=== PATIENT | female | born 1950 | race Caucasian/White ===

== ENCOUNTER 2018-09-03 16:18 | Inpatient (IN) ==
[2018-09-03] MEDS ORDERED: Sod Chloride 0.9% Inj 1,000 ML IV.SIG ONE (16:36)
[2018-09-03 17:09] LABS: Baso # (Auto) 0.1 th/mm3 (0.0-0.2); Baso % (Auto) 0.6 % (0.0-2.0); Eos # (Auto) 0.1 th/mm3 (0.0-0.4); Eos % (Auto) 1.2 % (0.0-4.0); Hematocrit 45.1 % (35.0-46.0); Hemoglobin 14.8 gm/dL (11.6-15.3); Lymph # (Auto) 2.5 th/mm3 (1.0-4.8); Lymph % (Auto) 29.8 % (9.0-44.0); Mean Corpuscular HGB Conc 32.9 % (32.0-36.0); Mean Corpuscular Hemoglobin 28.2 pg (27.0-34.0); Mean Corpuscular Volume 85.6 fL (80.0-100.0); Mean Platelet Volume 7.8 fL (7.0-11.0); Mono # (Auto) 0.5 th/mm3 (0.0-0.9); Mono % (Auto) 6.4 % (0.0-8.0); Neut # (Auto) 5.2 th/mm3 (1.8-7.7); Platelet Count 379 th/mm3 (150-450); Red Blood Count 5.27 mil/mm3 (4.00-5.30); Red Cell Distribution Width 15.1 % (11.6-17.2); White Blood Count 8.3 th/mm3 (4.0-11.0)
[2018-09-03 17:29] LABS: Bilirubin,Urine Negative (Negative); Clarity,Urine Clear (Clear); Color,Urine Yellow (Yellw/Straw); Glucose,Urine (UA) 500 or Greater mg/dL (Negative); Leukocyte Esterase,Urine Negative (Negative); Nitrite,Urine Negative (Negative); Specific Gravity,Urine 1.022 (1.002-1.035)
--- NOTE | 2018-09-03 17:40 | CT ---
EXAM DATE: 09/03/2018 5:01 PM EDT AGE/SEX: 67 years / Female INDICATIONS: Trauma, multiple falls. CLINICAL DATA: This is the patient's initial encounter. Patient reports that signs and symptoms have been present for 1 day and indicates a pain score of 5/10. MEDICAL/SURGICAL HISTORY: Diabetes. Hypertension. None. RADIATION DOSE: 48.86 CTDI (mGy) COMPARISON: [facility], MR BRAIN W AND W/O CONTRAST, 11/08/2017. . TECHNIQUE: CT of the head without contrast. Using automated exposure control and adjustment of the mA and/or kV according to patient size, radiation dose was kept as low as reasonably achievable to ob tain optimal diagnostic quality images. DICOM format image data is available electronically for revi ew and comparison. FINDINGS: Cerebrum: Moderate diffuse cerebral atrophy. The ventricles are in the upper limits of normal for de gree of atrophy but stable from prior exam. Mild periventricular white matter hypodensities. No evide nce of midline shift, mass lesion, hemorrhage or acute infarction. No extraaxial fluid collections a re seen. Posterior Fossa: The cerebellum and brainstem are intact. The 4th ventricle is midline. The cerebe llopontine angle is unremarkable. Extracranial: The visualized portion of the orbits is intact. Mucoperiosteal thickening involving th e right maxillary sinus. Skull: The calvaria is intact. No evidence of skull fracture. CONCLUSION: 1. Moderate diffuse cerebral atrophy in the upper limits of normal for age. 2. Mild periventricular ischemic white matter demyelination. 3. No acute intracranial abnormality. 4. Right maxillary sinus mucosal disease. . Electronically signed by: Gera Marcelino MD 09/03/2018 5:39 PM EDT
--- NOTE | 2018-09-03 17:45 | CT ---
EXAM DATE: 09/03/2018 5:01 PM EDT AGE/SEX: 67 years / Female INDICATIONS: Trauma, multiple falls. CLINICAL DATA: This is the patient's initial encounter. Patient reports that signs and symptoms have been present for 1 day and indicates a pain score of 5/10. MEDICAL/SURGICAL HISTORY: Diabetes. Hypertension. . RADIATION DOSE: 42.99 CTDI (mGy) COMPARISON: No prior exams available for comparison. TECHNIQUE: Contiguous axial images were obtained using helical multirow detector technique. The vol umetric data was post-processed with multiplanar reconstruction in oblique axial, sagittal, and coron al planes. Using automated exposure control and adjustment of the mA and/or kV according to patient s ize, radiation dose was kept as low as reasonably achievable to obtain optimal diagnostic quality rodrigue ges. DICOM format image data is available electronically for review and comparison. FINDINGS: OSSEOUS STRUCTURES: Vertebral body heights are maintained. Osseous structures are intact without evid ence for acute bony fracture. Dens is intact. ALIGNMENT: Sagittal alignment is maintained. There is a normal C1-2 relationship. Facets are normal ly aligned. SOFT TISSUES: There is no significant prevertebral soft tissue hematoma. No significant cervical caity nopathy or gross mass. The thyroid appears unremarkable. Visualized lung apices are clear without pn eumothorax. ADDITIONAL FINDINGS: Advanced multilevel spondylosis of the lower cervical spine most prominently at C4-5 and C5-6 with moderate severe disc space disease, end plate sclerosis and posterior disc osteoph ytes. Bony central canal is patent. Mild right and moderate left bony neural foraminal stenosis at C 4-5 and C5-6. CONCLUSION: 1. No acute fracture or subluxation. 2. Advanced multilevel degenerative spondylosis of cervical spine. Electronically signed by: Gera Marcelino MD 09/03/2018 5:44 PM EDT
[2018-09-03 18:11] LABS: Anion Gap 9 meq/L (5-15); Blood Urea Nitrogen 35 mg/dL (7-18); Calcium 9.6 mg/dL (8.5-10.1); Carbon Dioxide 31.3 meq/L (21.0-32.0); Chloride 90 meq/L (98-107); Glomerular Filtration Rate 27 mL/min (>89); Potassium 4.2 meq/L (3.5-5.1); Sodium 130 meq/L (136-145)
[2018-09-03 18:14] LABS: Glucose,Random 620 mg/dL (74-106)
[2018-09-03] MEDS ORDERED: ALPRAZolam 0.25 MG Tablet PO PRN (18:48)
[2018-09-03] MEDS ORDERED: Dextrose 50% in Water 50 ML Vial IV.PUSH PRN (18:49)
[2018-09-03] MEDS ORDERED: Acetaminophen 325 MG Tablet PO PRN (18:52)
[2018-09-03] MEDS ORDERED: Sodium Chlor 0.9% Inj 500 ML IV.SIG SCH (19:00)
--- NOTE | 2018-09-03 19:04 | ED ---
HPI General Chief Complaint: Neuro Symptoms/Deficit Stated Complaint: fall-R side of head Time Seen by Provider: 09/03/18 16:35 Source: patient and family Mode of arrival: ambulatory Limitations: no limitations History of Present Illness HPI Narrative: Patient is a 67-year-old female, past medical history significant for hypertension, diabetes, hypothyroidism, previous renal artery stent placement, who presents with complaint of a fall. She states that she got up and fell hitting the back of her head. She did not lose consciousness. No nausea nor vomiting since then. She denies any neck pain. Per her she has had frequent falls over the last several years secondary to dizziness. He states that she has had an extensive workup which included CTs and an MRI for this dizziness. He states that he was called by her physician recently and told that secondary to the changes on her imaging she needed to be on bedrest for the next 6 weeks. He does not no further information. Records have been requested. complaint: Reports fall Onset (ago): hour(s) Related Data Home Medications Medication Instructions Recorded Confirmed alprazolam [Xanax] 0.25 mg PO BID PRN 09/03/18 09/03/18 aspirin [Aspirin Childrens] 81 mg PO DAILY 09/03/18 09/03/18 insulin regular human [Novolin R 1 sliding scale dose SUBCUT BID 09/03/18 Regular U-100 Insuln] levothyroxine [Synthroid] 50 mcg PO DAILY 09/03/18 09/03/18 lisinopril 40 mg PO DAILY 09/03/18 09/03/18 Allergies Allergy/AdvReac Type Severity Reaction Status Date / Time Penicillins Allergy Mild Hives Verified 09/03/18 16:26 Review of Systems ROS: all other systems reviewed are negative FOR[facility] Medical History Medical History Hypothyroid (Acute) Diabetes (Acute) Hypertension (Acute) Slurred speech (Acute) Surgical History Surgical History H/O arthroscopy of knee (Acute) History of renal stent (Acute) Social History Social History Substance History: No History of Abuse Second Hand Smoke Exposure: No Smoking Status: Never smoker How Often Do You Have a Drink Containing Alcohol: Monthly or less Recent Travel in [facility] within the Last 8 Weeks: No Recent Out of Country Travel within the Last 8 Weeks: No Immunization History Tetanus Immunization: <5 Years Exam Narrative Exam Narrative: GENERAL: Well-appearing female in no acute distress SKIN: Focused skin assessment warm/dry. HEAD: Atraumatic. Normocephalic. EYES: Pupils equal and round. No scleral icterus. No injection or drainage. ENT: No nasal bleeding or discharge. Mucous membranes pink and moist. NECK: Trachea midline. No JVD. CARDIOVASCULAR: Regular rate and rhythm. No murmur appreciated. RESPIRATORY: No accessory muscle use. Clear to auscultation. Breath sounds equal bilaterally. GASTROINTESTINAL: Abdomen soft, non-tender, nondistended. Hepatic and splenic margins not palpable. MUSCULOSKELETAL: No obvious deformities. No clubbing. No cyanosis. No edema. NEUROLOGICAL: Awake and alert. No obvious cranial nerve deficits. Motor within normal limits. Normal sensation. Slight dysmetria of the bilateral upper extremities but no ataxia of the lower extremities. Normal speech. PSYCHIATRIC: Appropriate mood and affect; insight and judgment normal. Course Initial Documented Vital Signs Temperature 98.5 F 09/03/18 16:22 Pulse Rate 97 H 09/03/18 16:22 Blood Pressure 136/78 09/03/18 16:22 Pulse Oximetry 98 09/03/18 16:22 Last Documented Vital Signs Temperature 98.5 F 09/03/18 16:36 Pulse Rate 84 09/03/18 18:00 Respiratory Rate 16 09/03/18 18:00 Blood Pressure 140/97 H 09/03/18 18:00 Pulse Oximetry 98 09/03/18 18:00 Medical Decision Making [facility] Narrative Medical decision making narrative: Patient is a [age]-year-old female who presents with complaint of frequent falls secondary to dizziness that has been worked up outpatient over the last 2 years. She is hemodynamically stable while in the emergency department. CT of the head and cervical spine are unremarkable. Labs revealed markedly elevated glucose with a creatinine of 1.8 and an elevated BUN. She has been given fluids and does admit to taking insulin intermittently without ever checking her blood sugar. We have not yet received the records from the outside hospital and do not know what her baseline creatinine is that she has been admitted for acute kidney injury and uncontrolled hyperglycemia. I spoke with Dr. Case, hospitalist on-call, whom agreed to admission. Medical Screen Exam Complete: Yes Emergency Medical Condition: Yes Differential Diagnosis Differential Diagnosis: Differential diagnosis includes but is not limited to vertigo, anemia, electrolyte abnormality, intracranial hemorrhage. Lab Data Lab results reviewed: Yes I reviewed the patient's lab results. Result diagrams: 09/03/18 16:45 09/03/18 16:45 Lab Results 09/03/18 09/03/18 09/03/18 Range/Units 16:45 16:45 17:00 WBC 8.3 (4.0-11.0) th/mm3 RBC 5.27 (4.00-5.30) mil/mm3 Hgb 14.8 (11.6-15.3) gm/dL Hct 45.1 (35.0-46.0) % MCV 85.6 (80.0-100.0) fL MCH 28.2 (27.0-34.0) pg MCHC 32.9 (32.0-36.0) % RDW 15.1 (11.6-17.2) % Plt Count 379 (150-450) th/mm3 MPV 7.8 (7.0-11.0) fL Neut % (Auto) 62.0 (16.0-70.0) % Lymph % (Auto) 29.8 (9.0-44.0) % [place] % (Auto) 6.4 (0.0-8.0) % Eos % (Auto) 1.2 (0.0-4.0) % Baso % (Auto) 0.6 (0.0-2.0) % Neut # (Auto) 5.2 (1.8-7.7) th/mm3 Lymph # (Auto) 2.5 (1.0-4.8) th/mm3 [place] # (Auto) 0.5 (0.0-0.9) th/mm3 Eos # (Auto) 0.1 (0.0-0.4) th/mm3 Baso # (Auto) 0.1 (0.0-0.2) th/mm3 WBC Differential . Differential Comment Auto diff final Sodium 130 L (136-145) meq/L Potassium 4.2 (3.5-5.1) meq/L Chloride 90 L (98-107) meq/L Carbon Dioxide 31.3 (21.0-32.0) meq/L Anion Gap 9 (5-15) meq/L BUN 35 H (7-18) mg/dL Creatinine 1.88 H (0.50-1.00) mg/dL Estimated GFR 27 L (>89) mL/min Random Glucose 620 H* (74-106) mg/dL Calcium 9.6 (8.5-10.1) mg/dL Troponin I Less than 0.02 L (0.02-0.05) ng/mL Urine Color Yellow (Yellw/Straw) Urine Clarity Clear (Clear) Urine pH 6.0 (5.0-8.5) Ur Specific [place] 1.022 (1.002-1.035) Urine Protein Negative (Neg-Trace) mg/dL Urine Glucose (UA) 500 or greater (Negative) mg/dL Urine Ketones Negative (Negative) mg/dL Urine Occult Blood Moderate H (Negative) Urine Nitrate Negative (Negative) Urine Bilirubin Negative (Negative) Urine Urobilinogen Less than 2 (Less than 2) mg/dL Ur Leukocyte Esterase Negative (Negative) Urine RBC 4 H (0-3) /hpf Urine WBC 8 H (0-5) /hpf Micro UA Comment Cath-culture not ind Ur Microscopic Review Not Reportable Urine Culture Comments Cath-cult not ind Imaging Data Attestation: I personally reviewed and interpreted this imaging study as follows : Radiologist's impression: Cervical Spine CT 09/03/18 16:36 CONCLUSION: 1. No acute fracture or subluxation. 2. Advanced multilevel degenerative spondylosis of cervical spine. Head CT 09/03/18 16:36 CONCLUSION: 1. Moderate diffuse cerebral atrophy in the upper limits of normal for age. 2. Mild periventricular ischemic white matter demyelination. 3. No acute intracranial abnormality. 4. Right maxillary sinus mucosal disease. . Discharge Plan Discharge Disposition Patient Disposition: 30 Still Patient Discharge Condition Condition: Fair Discharge Details Diagnosis: DAVID (acute kidney injury), Chronic hyperglycemia, Dizziness, Falls frequently Physicians Team ED Provider: Jessica Hanson Primary Care Provider: UNKNOWN, Rxs /Orders / Referrals /Forms Prescriptions: No Action alprazolam [Xanax] 0.25 mg Tablet 0.25 mg PO BID PRN (Reason: Anxiety) RF: 0 lisinopril 40 mg Tablet 40 mg PO DAILY RF: 0 levothyroxine [Synthroid] 50 mcg Tablet 50 mcg PO DAILY RF: 0 insulin regular human [Novolin R Regular U-100 Insuln] 100 unit/mL Solution 1 sliding scale dose SUBCUT BID RF: 0 aspirin [Aspirin Childrens] 81 mg Tablet,Chewable 81 mg PO DAILY RF: 0 Discharge Interventions Interventions: Vital Signs Last Done: 09/03/18 18:00 Status ED Status: With Doctor
[2018-09-03] MEDS: Sod Chloride 0.9% Inj 1,000 ML IV.CONT SCH (19:17)
[2018-09-03] MEDS: Heparin - SQ 10,000 UNITS/ML Vial SQ SCH (19:17)
--- NOTE | 2018-09-03 19:54 | P.HPIM ---
History of Present Illness Primary Care Physician: UNKNOWN History of Present Illness: Is a 67-year-old female with a PMH of HTN, Hypothyroidism, DM, Chronic Slurred Speech and Recurrent Falls who was brought to the ER after a fall w/ head trauma. Pt reports she has h/o recurrent falls, has been following w/ her Neurologist, Dr. Barnett since September 2017 and reports >100 falls since that time. States she's had extensive work up w/ CT/MRI and have found no etiology for her falls. Per patient she was called by her Neurologist and told she would need to be on bedrest x6 wks due to risk of fall. Recently presented to [facility] on 07/31/18 for same, CT Head/C-Spine negative. Today, states she had episode of dizziness while sitting at edge of bed, and had fall when she attempted to get up. No LOC. On arrival, BP 141/58, HR 93, O2 sat 96% on RA, Afebrile. CBC unremarkable. Creatinine 1.88, records from [facility] from 07/31/18 w/ creatinine 0.98. BS 620. Trop negative. CT C-spine negative for acute findings. CT Head moderate diffuse cerebral atrophy, no acute findings. - Diagnosis (1) Fall (2) DM (diabetes mellitus) (3) DAVID (acute kidney injury) (4) Dizziness Inpatient Certification: I certify that the inpatient services were ordered in accordance with Medicare regulations governing the order. This includes certification that hospital inpatient services are reasonable and necessary and in the case of services not specified as inpatient-only under 42 CFR 419.22(n), that they are appropriately provided as inpatient services in accordance to with the 2-midnight benchmark under 43 CFR 412.3(e) Estimated Total Length of Stay (Days): 2 Plans for Post Hospital Care: Not yet determined Review of Systems PAST FAMILY HISTORY: Reviewed. No h/o DM or CAD All other systems reviewed negative except as stated in HPI [facility] - History History Provided By: Patient, Family Member - Medical History Medical History: Medical History (Last Reviewed 09/03/18 @ 19:01 by Jessica Hanson MD) Hypothyroid Diabetes Hypertension Slurred speech - Surgical History Surgical History: Surgical History (Last Reviewed 09/03/18 @ 19:01 by Jessica Hanson MD) H/O arthroscopy of knee History of renal stent - Tobacco History Second Hand Smoke Exposure: No Smoking Status: Never smoker - Alcohol History How Often Do You Have a Drink Containing Alcohol: Monthly or less - Substance Use History Substance History: No History of Abuse - Travel History Recent Travel in the [place] Within the Last 8 Weeks: No Recent Travel Out of the Country Within the Last 8 Weeks: No - Immunization History Tetanus Immunization: <5 Years Medications and Allergies Active Medications: Active Medications Acetaminophen (Tylenol) 650 mg PO Q4H PRN PRN Reason: Temp > 100.4; pain 1-2 Alprazolam (Xanax) 0.25 mg PO BID PRN PRN Reason: Anxiety Aspirin (Aspirin Chew) 81 mg PO DAILY ANN Dextrose (D50w Vial) 50 ml IV.PUSH UNSCH PRN PRN Reason: PER HYPOGLYCEMIA PROTOCOL Glucagon (Glucagon Inj) 1 mg OTHER PRN PRN PRN Reason: for Hypoglycemia Protocol Heparin Sodium (Porcine) (Heparin Inj) 5,000 units SQ Q8H [facility] Last Admin: 09/03/18 19:17 Dose: 5,000 units Sodium Chloride (Ns Inj) 500 mls @ 0 mls/hr IV.SIG BOLUS ANN Sodium Chloride (Ns Inj) 1,000 mls @ 100 mls/hr IV.CONT .Q10H [facility] Last Admin: 09/03/18 19:17 Dose: 100 mls/hr Insulin Aspart (Novolog Insulin Correctional Sugar Inj) 0 unit SQ Q6HR ANN; Protocol Insulin Aspart (Novolog Inj) 3 units SQ TIDAC [facility] Levothyroxine Sodium (Synthroid) 50 mcg PO DAILY@0600 [facility] Senna/Docusate Sodium (Key-Colace) 1 tab PO BID [facility] Sodium Chloride (Ns Flush) 2 ml IV.FLUSH PRN PRN PRN Reason: FLUSH AFTER USING IV ACCESS Last Admin: 09/03/18 17:27 Dose: 2 ml Allergies Allergy/AdvReac Type Severity Reaction Status Date / Time Penicillins Allergy Mild Hives Verified 09/03/18 16:26 Home Medications Medication Instructions Recorded Confirmed Type alprazolam [Xanax] 0.25 mg PO BID PRN 09/03/18 09/03/18 History aspirin [Aspirin Childrens] 81 mg PO DAILY 09/03/18 09/03/18 History insulin regular human [Novolin R 1 sliding scale dose SUBCUT BID 09/03/18 History Regular U-100 Insuln] levothyroxine [Synthroid] 50 mcg PO DAILY 09/03/18 09/03/18 History lisinopril 40 mg PO DAILY 09/03/18 09/03/18 History Exam Vital signs: Vital Signs 09/03/18 16:22 09/03/18 16:36 09/03/18 18:00 Temperature 98.5 F 98.5 F Pulse Rate 97 H 93 H 84 Respiratory Rate 12 16 Blood Pressure 136/78 141/58 H 140/97 H Pulse Oximetry 98 96 98 09/03/18 19:19 Temperature Pulse Rate 85 Respiratory Rate 16 Blood Pressure 120/73 Pulse Oximetry 96 Intake & Output 09/03/18 09/03/18 09/04/18 06:59 18:59 06:59 Intake Total 1000 / 1000 Balance 1000 / 1000 Weight 74.843 kg Intake: IV 1000 / 1000 NS Inj 1,000 ML @ Wide Open IV. 1000 / 1000 SIG BOLUS ONE Rx#:[id number] Narrative: PE: GENERAL: Middle-aged white female in no acute distress. Slurred speech, at baseline. SKIN: Focused skin assessment warm and dry. HEENT: PERRLA, EOMI. No scleral icterus or conjunctival pallor. No lid lag or facial droop. CARDIOVASCULAR: Regular rate and rhythm. No obvious murmurs to auscultation. No chest tenderness to palpation. RESPIRATORY: No obvious rhonchi or wheezing. Clear to auscultation. Breath sounds equal bilaterally. GASTROINTESTINAL: Abdomen soft, non-tender, nondistended. BS normal. MUSCULOSKELETAL: Extremities without clubbing, cyanosis, or edema. No obvious deformities. NEUROLOGICAL: Awake, alert and oriented x4. No focal neurologic deficits. Moving both upper and lower extremities spontaneously. PSYCHIATRIC: Appropriate mood and affect. Insight and judgment normal. Results - Labs CBC & Chem 7: 09/03/18 16:45 09/03/18 16:45 Labs: Short CBC 09/03/18 Range/Units 16:45 WBC 8.3 (4.0-11.0) th/mm3 Hgb 14.8 (11.6-15.3) gm/dL Hct 45.1 (35.0-46.0) % Plt Count 379 (150-450) th/mm3 BMP 09/03/18 16:45 Sodium 130 L Potassium 4.2 Chloride 90 L Carbon Dioxide 31.3 BUN 35 H Creatinine 1.88 H Calcium 9.6 Cardiac Enzymes 09/03/18 Range/Units 16:45 Troponin I Less than 0.02 L (0.02-0.05) ng/mL Urine 09/03/18 Range/Units 17:00 Urine Color Yellow (Yellw/Straw) Urine Clarity Clear (Clear) Urine pH 6.0 (5.0-8.5) Ur Specific [place] 1.022 (1.002-1.035) Urine Protein Negative (Neg-Trace) mg/dL Urine Glucose (UA) 500 or greater (Negative) mg/dL - Imaging Impressions Cervical Spine CT 09/03/18 16:36 CONCLUSION: 1. No acute fracture or subluxation. 2. Advanced multilevel degenerative spondylosis of cervical spine. Head CT 09/03/18 16:36 CONCLUSION: 1. Moderate diffuse cerebral atrophy in the upper limits of normal for age. 2. Mild periventricular ischemic white matter demyelination. 3. No acute intracranial abnormality. 4. Right maxillary sinus mucosal disease. . Caprini VTE Risk Assessment Caprini VTE Risk Assessment: No/Low Risk (score <= 1) Caprini Risk Assessment Model: Point Value = 1 Point Value = 2 Point Value = 3 Point Value = 5 Age 41-60 Minor surgery BMI > 25 kg/m2 Swollen legs Varicose veins or History of unexplained or recurrent spontaneous Oral contraceptives or hormone replacement Sepsis (< 1 month) Serious lung disease, including pneumonia (< 1 month) Abnormal pulmonary function Acute myocardial infarction Congestive heart failure (< 1 month) History of inflammatory bowel disease Medical patient at bed rest Age 61-74 Arthroscopic surgery Major open surgery (> 45 min) Laparoscopic surgery (> 45 min) Malignancy Confined to bed (> 72 hours) Immobilizing plaster cast Central venous access Age >= 75 History of VTE Family history of VTE Factor V Leiden Prothrombin [id number] Lupus anticoagulant Anticardiolipin antibodies Elevated serum homocysteine Heparin-induced thrombocytopenia Other congenital or acquired thrombophilia Stroke (< 1 month) Elective arthroplasty Hip, pelvis, or leg fracture Acute spinal cord injury (< 1 month) Prophylaxis Regimen: Total Risk Factor Score Risk Level Prophylaxis Regimen 0-1 Low Early ambulation 2 Moderate Order ONE of the following: *Sequential Compression Device (SCD) *Heparin 5000 units SQ BID 3-4 Higher Order ONE of the following medications: *Heparin 5000 units SQ TID *Enoxaparin/Lovenox 40 mg SQ daily (WT < 150 kg, CrCl > 30 mL/min) *Enoxaparin/Lovenox 30 mg SQ daily (WT < 150 kg, CrCl > 10-29 mL/min) *Enoxaparin/Lovenox 30 mg SQ BID (WT < 150 kg, CrCl > 30 mL/min) AND/OR *Sequential Compression Device (SCD) 5 or more Highest Order ONE of the following medications: *Heparin 5000 units SQ TID (Preferred with Epidurals) *Enoxaparin/Lovenox 40 mg SQ daily (WT < 150 kg, CrCl > 30 mL/min) *Enoxaparin/Lovenox 30 mg SQ daily (WT < 150 kg, CrCl > 10-29 mL/min) *Enoxaparin/Lovenox 30 mg SQ BID (WT < 150 kg, CrCl > 30 mL/min) AND *Sequential Compression Device (SCD) Assessment and Plan - Assessment (1) Fall Code(s): W19.XXXA - Unspecified fall, initial encounter Status: Acute (2) DM (diabetes mellitus) Code(s): E11.9 - Type 2 diabetes mellitus without complications Status: Acute (3) DAVID (acute kidney injury) Code(s): N17.9 - Acute kidney failure, unspecified Status: Acute (4) Dizziness Code(s): R42 - Dizziness and giddiness Status: Acute - Plan A/P: 1. Fall: Recurrent, reports >100 falls since Sep 2017, following w/ Dr. Barnett w/ extensive work up however no obvious etiology. Reports intermittent dizziness prior to fall, previous eval w/ ENT also negative. CT Head/C-Spine w/ no acute findings. Will consult Neurology for further eval/ recommendations. PT for eval/tx. 2. DAVID: Creatinine 1.88, previously 0.98 on 07/31/18 per review of [facility] records, IVF for hydration, U/a negative for UTI, monitor I/O, repeat labs in am. 3. DM: Uncontrolled. BS 620, sliding scale w/ Accu-Cheks. 4. DVT Prophylaxis: SCD/Teds 5. Social work for d/c planning as needed 6. Case discussed w/ ER physician at length, labs/records/imaging reviewed by me.
[2018-09-03] MEDS: Senna/Docusate Sodium 8.6/50 MG Tablet PO SCH (22:10)
[2018-09-03] MEDS: Insulin NovoLOG Aspart Correctional Sugar Inj SQ SCH (23:46)
[2018-09-04] MEDS: Heparin - SQ 10,000 UNITS/ML Vial SQ SCH ×4 (03:57→18:03)
[2018-09-04] MEDS: Sod Chloride 0.9% Inj 1,000 ML IV.CONT SCH ×2 (03:59→18:03)
[2018-09-04] MEDS: Insulin NovoLOG Aspart Correctional Sugar Inj SQ SCH ×3 (06:08→18:04)
[2018-09-04] MEDS: Levothyroxine 50 MCG Tablet PO SCH (06:09)
[2018-09-04 08:36] LABS: Baso % (Auto) 0.5 % (0.0-2.0); Eos # (Auto) 0.2 th/mm3 (0.0-0.4); Eos % (Auto) 3.7 % (0.0-4.0); Hematocrit 40.5 % (35.0-46.0); Hemoglobin 13.5 gm/dL (11.6-15.3); Lymph # (Auto) 2.9 th/mm3 (1.0-4.8); Lymph % (Auto) 44.7 % (9.0-44.0); Mean Corpuscular HGB Conc 33.3 % (32.0-36.0); Mean Corpuscular Hemoglobin 27.8 pg (27.0-34.0); Mean Corpuscular Volume 83.6 fL (80.0-100.0); Mean Platelet Volume 7.2 fL (7.0-11.0); Mono # (Auto) 0.5 th/mm3 (0.0-0.9); Mono % (Auto) 7.4 % (0.0-8.0); Neut # (Auto) 2.9 th/mm3 (1.8-7.7); Neut % (Auto) 43.7 % (16.0-70.0); Platelet Count 334 th/mm3 (150-450); Red Blood Count 4.84 mil/mm3 (4.00-5.30); Red Cell Distribution Width 14.7 % (11.6-17.2); White Blood Count 6.5 th/mm3 (4.0-11.0)
[2018-09-04 09:15] LABS: Alanine Aminotransferase 22 U/L (10-53); Albumin 3.2 g/dL (3.4-5.0); Alkaline Phosphatase 97 U/L (45-117); Anion Gap 6 meq/L (5-15); Aspartate Aminotransferase 15 U/L (15-37); Blood Urea Nitrogen 19 mg/dL (7-18); Calcium 8.9 mg/dL (8.5-10.1); Carbon Dioxide 30.5 meq/L (21.0-32.0); Chloride 107 meq/L (98-107); Glomerular Filtration Rate 45 mL/min (>89); Glucose,Random 178 mg/dL (74-106); Potassium 3.9 meq/L (3.5-5.1); Sodium 143 meq/L (136-145); Total Protein 6.5 g/dL (6.4-8.2)
--- NOTE | 2018-09-04 10:19 | P.PNIM ---
Subjective Interval history: The patient says that she has had about 100 falls over the past 14 months. She says she was ordered on 1 month of bed rest by her neurologist. She says she was on physical therapy and did better but discontinued the services for some reason. She says she has a sensation that the room spins around with movement. Physical Exam Vital signs: Vital Signs 09/03/18 16:22 09/03/18 16:36 09/03/18 18:00 Temperature 98.5 F 98.5 F Pulse Rate 97 H 93 H 84 Respiratory Rate 12 16 Blood Pressure 136/78 141/58 H 140/97 H Pulse Oximetry 98 96 98 09/03/18 19:19 09/03/18 21:24 09/04/18 00:00 Temperature 98 F 98.1 F Pulse Rate 85 83 85 Respiratory Rate 16 19 17 Blood Pressure 120/73 106/57 L 119/77 Pulse Oximetry 96 96 94 L 09/04/18 04:00 09/04/18 08:00 Temperature 98 F 98.3 F Pulse Rate 86 84 Respiratory Rate 18 18 Blood Pressure 117/72 140/70 Pulse Oximetry 96 94 L Intake & Output 09/03/18 09/04/18 09/04/18 18:59 06:59 18:59 Intake Total 1999 Balance 1999 Weight 74.843 kg 74.843 kg Intake: IV 1999 NS Inj 1,000 ML @ 100 mls/hr IV 1000 / 1000 .CONT .Q10H ANN Rx#:[id number] NS Inj 1,000 ML @ Wide Open IV. 1000 / 1000 SIG BOLUS ONE Rx#:[id number] Other: Post Void Residual 550 Weight On Admission 74.843 kg Narrative: GENERAL: Middle-aged female in no acute distress. SKIN: Focused skin assessment warm and dry. HEENT: PERRLA, EOMI. No scleral icterus or conjunctival pallor. No lid lag or facial droop. CARDIOVASCULAR: Regular rate and rhythm. No obvious murmurs to auscultation. No chest tenderness to palpation. RESPIRATORY: No obvious rhonchi or wheezing. Clear to auscultation. Breath sounds equal bilaterally. GASTROINTESTINAL: Abdomen soft, non-tender, nondistended. BS normal. MUSCULOSKELETAL: Extremities without clubbing, cyanosis, or edema. No obvious deformities. NEUROLOGICAL: Awake, alert and oriented x4. No focal neurologic deficits. Moving both upper and lower extremities spontaneously. PSYCHIATRIC: Appropriate mood and affect. Insight and judgment normal. Results - Labs CBC & Chem 7: 09/04/18 07:42 09/04/18 07:42 Laboratory Results - last 24 hr 09/03/18 09/03/18 09/03/18 16:45 16:45 17:00 WBC 8.3 RBC 5.27 Hgb 14.8 Hct 45.1 MCV 85.6 MCH 28.2 MCHC 32.9 RDW 15.1 Plt Count 379 MPV 7.8 Neut % (Auto) 62.0 Lymph % (Auto) 29.8 [place] % (Auto) 6.4 Eos % (Auto) 1.2 Baso % (Auto) 0.6 Neut # (Auto) 5.2 Lymph # (Auto) 2.5 [place] # (Auto) 0.5 Eos # (Auto) 0.1 Baso # (Auto) 0.1 WBC Differential . Differential Comment Auto diff final Sodium 130 L Potassium 4.2 Chloride 90 L Carbon Dioxide 31.3 Anion Gap 9 BUN 35 H Creatinine 1.88 H Estimated GFR 27 L POC Glucose Random Glucose 620 H* Calcium 9.6 Total Bilirubin AST ALT Alkaline Phosphatase Troponin I Less than 0.02 L Total Protein Albumin Urine Color Yellow Urine Clarity Clear Urine pH 6.0 Ur Specific [place] 1.022 Urine Protein Negative Urine Glucose (UA) 500 or greater Urine Ketones Negative Urine Occult Blood Moderate H Urine Nitrate Negative Urine Bilirubin Negative Urine Urobilinogen Less than 2 Ur Leukocyte Esterase Negative Urine RBC 4 H Urine WBC 8 H Micro UA Comment Cath-culture not ind Ur Microscopic Review Not Reportable Urine Culture Comments Cath-cult not ind 09/03/18 09/03/18 09/03/18 19:59 20:29 23:41 WBC RBC Hgb Hct MCV MCH MCHC RDW Plt Count MPV Neut % (Auto) Lymph % (Auto) [place] % (Auto) Eos % (Auto) Baso % (Auto) Neut # (Auto) Lymph # (Auto) [place] # (Auto) Eos # (Auto) Baso # (Auto) WBC Differential Differential Comment Sodium Potassium Chloride Carbon Dioxide Anion Gap BUN Creatinine Estimated GFR POC Glucose 342 H 356 H 309 H Random Glucose Calcium Total Bilirubin AST ALT Alkaline Phosphatase Troponin I Total Protein Albumin Urine Color Urine Clarity Urine pH Ur Specific [place] Urine Protein Urine Glucose (UA) Urine Ketones Urine Occult Blood Urine Nitrate Urine Bilirubin Urine Urobilinogen Ur Leukocyte Esterase Urine RBC Urine WBC Micro UA Comment Ur Microscopic Review Urine Culture Comments 09/04/18 09/04/18 09/04/18 06:02 07:42 07:42 WBC 6.5 RBC 4.84 Hgb 13.5 Hct 40.5 MCV 83.6 MCH 27.8 MCHC 33.3 RDW 14.7 Plt Count 334 MPV 7.2 Neut % (Auto) 43.7 Lymph % (Auto) 44.7 H [place] % (Auto) 7.4 Eos % (Auto) 3.7 Baso % (Auto) 0.5 Neut # (Auto) 2.9 Lymph # (Auto) 2.9 [place] # (Auto) 0.5 Eos # (Auto) 0.2 Baso # (Auto) 0.0 WBC Differential . Differential Comment Auto diff final Sodium 143 D Potassium 3.9 Chloride 107 D Carbon Dioxide 30.5 Anion Gap 6 BUN 19 H Creatinine 1.19 H Estimated GFR 45 L POC Glucose 167 H Random Glucose 178 H D Calcium 8.9 Total Bilirubin 0.3 AST 15 ALT 22 Alkaline Phosphatase 97 Troponin I Total Protein 6.5 Albumin 3.2 L Urine Color Urine Clarity Urine pH Ur Specific [place] Urine Protein Urine Glucose (UA) Urine Ketones Urine Occult Blood Urine Nitrate Urine Bilirubin Urine Urobilinogen Ur Leukocyte Esterase Urine RBC Urine WBC Micro UA Comment Ur Microscopic Review Urine Culture Comments 09/04/18 08:31 WBC RBC Hgb Hct MCV MCH MCHC RDW Plt Count MPV Neut % (Auto) Lymph % (Auto) [place] % (Auto) Eos % (Auto) Baso % (Auto) Neut # (Auto) Lymph # (Auto) [place] # (Auto) Eos # (Auto) Baso # (Auto) WBC Differential Differential Comment Sodium Potassium Chloride Carbon Dioxide Anion Gap BUN Creatinine Estimated GFR POC Glucose 215 H Random Glucose Calcium Total Bilirubin AST ALT Alkaline Phosphatase Troponin I Total Protein Albumin Urine Color Urine Clarity Urine pH Ur Specific [place] Urine Protein Urine Glucose (UA) Urine Ketones Urine Occult Blood Urine Nitrate Urine Bilirubin Urine Urobilinogen Ur Leukocyte Esterase Urine RBC Urine WBC Micro UA Comment Ur Microscopic Review Urine Culture Comments - Imaging Impressions Cervical Spine CT 09/03/18 16:36 CONCLUSION: 1. No acute fracture or subluxation. 2. Advanced multilevel degenerative spondylosis of cervical spine. Head CT 09/03/18 16:36 CONCLUSION: 1. Moderate diffuse cerebral atrophy in the upper limits of normal for age. 2. Mild periventricular ischemic white matter demyelination. 3. No acute intracranial abnormality. 4. Right maxillary sinus mucosal disease. . Assessment and Plan - Assessment (1) Fall Code(s): W19.XXXA - Unspecified fall, initial encounter Status: Acute (2) DM (diabetes mellitus) Code(s): E11.9 - Type 2 diabetes mellitus without complications Status: Acute (3) DAVID (acute kidney injury) Code(s): N17.9 - Acute kidney failure, unspecified Status: Acute (4) Dizziness Code(s): R42 - Dizziness and giddiness Status: Acute - Plan Fall Recurrent, reports >100 falls since Sep 2017, following w/ Dr. Barnett w/ extensive work up. Seems related to vertigo. Reports intermittent dizziness prior to fall, previous eval w/ ENT also negative. CT Head/C-Spine w/ no acute findings. -Will consult Neurology for further eval/recommendations. -PT for eval/tx. -fall precautions. DAVID Creatinine 1.88, previously 0.98 on 07/31/18 per review of [facility] records. Improved with fluids. -continue IVFs and avoid nephrotoxins. DM Uncontrolled. BS 620 on admission. Improved. -sliding scale w/ Accu-Cheks. -add Levemir 10 units HS, 3 units aspart with meals. -diabetic diet. DVT Prophylaxis: SCD/Teds Discharge Planning: Await neuro eval
[2018-09-04] MEDS: Senna/Docusate Sodium 8.6/50 MG Tablet PO SCH ×2 (10:23→22:07)
[2018-09-04] MEDS ORDERED: Insulin Detemir Inj 1,000 UNIT/10 ML Vial SQ SCH (21:00)
--- NOTE | 2018-09-04 21:11 | MB ---
cc: Edgar Keating MD, PhD DATE: 09/04/2018 REASON FOR CONSULTATION: Unsteady gait. HISTORY OF PRESENT ILLNESS: Ms. Berumen is a 67-year-old woman who for the past year has had difficulty with balance. She states it comes and goes. It is usually brought on by change in position where she feels a severe sense of vertigo. It is usually fairly brief but has caused her to fall. She has been evaluated thoroughly by Dr. Barnett as an outpatient including an MRI of the brain which has been negative. She underwent a course of physical therapy with vestibular rehabilitation with no benefit. She does get headaches as well, cluster headaches and throbbing headaches. CURRENT MEDICATIONS: 1. Xanax p.r.n. 2. Tylenol. 3. Subcutaneous heparin. 4. NovoLog insulin. 5. Levemir insulin. 6. Synthroid. 7. Key-Colace. NEUROLOGIC EXAMINATION: VITAL SIGNS: Her blood pressure is 124/61, pulse 91, respirations 18, temperature 98.3 degrees. HIGHER CORTICAL FUNCTION: Normal. CRANIAL NERVES: Intact. There is no nystagmus. MOTOR: 5/5. She has no drift. Cerebellar testing is normal. Reflexes are symmetric. IMAGING STUDIES: CT brain is normal. CT cervical spine shows degenerative disk disease, especially at C4-C5. LABORATORY DATA: White count 6500, hemoglobin 13.5, hematocrit 40%, platelet count 334,000. Sodium 143, potassium 3.9, chloride 107, BUN 19, creatinine 1.19, GFR 45. IMPRESSION: Vertigo. The history sounds suggestive of a peripheral cause. Vestibular migraine is less likely. RECOMMENDATIONS: Trial of meclizine. I would like to repeat the MRI of the brain and also MRI cervical spine to rule out other etiologies. We will check a vitamin B12 level as well. Edgar Keating MD, PhD LOKESH/emiliano , 07:59 PM , 08:04 PM
[2018-09-05] MEDS: Insulin NovoLOG Aspart Correctional Sugar Inj SQ SCH ×4 (00:42→18:20)
[2018-09-05] MEDS: Sod Chloride 0.9% Inj 1,000 ML IV.CONT SCH ×2 (02:51→18:21)
[2018-09-05] MEDS: Heparin - SQ 10,000 UNITS/ML Vial SQ SCH ×2 (02:54→14:07)
[2018-09-05] MEDS: Levothyroxine 50 MCG Tablet PO SCH (06:19)
[2018-09-05] MEDS: Senna/Docusate Sodium 8.6/50 MG Tablet PO SCH (09:15)
[2018-09-05 09:59] VITALS: RESP 20
--- NOTE | 2018-09-05 11:57 | MR ---
EXAM DATE: 09/05/2018 9:55 AM EDT AGE/SEX: 67 years / Female INDICATIONS: Vertigo. Slurred speech. CLINICAL DATA: This is the patient's initial encounter. Patient reports that signs and symptoms have been present for 2 days and indicates a pain score of 0/10. MEDICAL/SURGICAL HISTORY: Diabetes mellitus type II. Hypertension. . Renal stent. Knee arthros copy. [place] [facility] [place]. . TECHNIQUE: Multiplanar, multisequence examination of the brain was performed without and with 7 ml Ga davist (gadobutrol) contrast as a single exam dose. FINDINGS: Mild symmetric ventricular prominence. Minimal periventricular white matter T2 prolongation. No evide nce of intracranial mass or hemorrhage. Nothing to suggest acute infarction. No abnormal parenchymal contrast enhancement identified. Normal enhancement in intracranial vascular structures. Extracranial structures are benign with mild mucosal thickening in the right maxillary sinus. CONCLUSION: No acute findings. Electronically signed by: Jeremy Almanza MD 09/05/2018 11:56 AM EDT
--- NOTE | 2018-09-05 11:59 | MR ---
EXAM DATE: 09/05/2018 9:55 AM EDT AGE/SEX: 67 years / Female INDICATIONS: Vertigo. CLINICAL DATA: This is the patient's initial encounter. Patient reports that signs and symptoms have been present for 2 days and indicates a pain score of 3/10. MEDICAL/SURGICAL HISTORY: Diabetes mellitus type II. Hypertension. . Renal stents. COMPARISON: [facility] [place] CERVICAL [place]INE W/O CONTRAST, 09/03/2018. . TECHNIQUE: Multiplanar, multisequence MRI examination of the cervical spine was performed without co ntrast. FINDINGS: VERTEBRAE: Normal vertebral body height. Homogeneous marrow signal. ALIGNMENT: Loss of normal sagittal lordosis. CORD: Normal configuration and signal. POST FOSSA: The cerebellar tonsils are normal in position. C2-C3: The thecal sac has a normal configuration. There is no evidence of disc herniation or spinal canal stenosis. The neural foramina are patent bilaterally. C3-C4: The thecal sac has a normal configuration. There is no evidence of disc herniation or spinal canal stenosis. The neural foramina are patent bilaterally. C4-C5: Disc space narrowing with posterior disc osteophytes. Eccentric effacement of the left anterio r lateral recess. Mild right and moderate left neural foraminal narrowing. C5-C6: Posterior disc osteophytes with effacement of the anterior thecal sac. Central canal measures approximately 8 mm. [id number] bilateral neural foraminal stenosis. C6-C7: Minimal posterior disc osteophytes. No significant central canal or neural foraminal stenosis. C7-T1: No epidural impressions seen. CONCLUSION: 1. Degenerative spondylosis of the cervical spine most prominently at C4-5 and C5-6 with moderate ce ntral canal stenosis at C5-6 and effacement of the left anterior lateral recess at C4-5. 2. Mild to moderate neural foraminal narrowing at C4-5 and C5-6, as above. Electronically signed by: Gera Marcelino MD 09/05/2018 11:58 AM EDT
[2018-09-05] MEDS ORDERED: Gadobutrol PF 7.5 MMOL/7.5 ML Vial (for RAD) IV.SIG ONE (12:11)
[2018-09-05 12:48] VITALS: O2SAT 97
[2018-09-05 16:22] VITALS: BP 149/91; PULSE 79; TEMP 98.1
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
--- NOTE | 2018-09-05 16:53 | P.DCO ---
- Diagnosis (1) Vertigo Status: Acute (2) DAVID (acute kidney injury) Status: Acute (3) Dizziness Status: Acute - Physical Therapy Order: Evaluate and treat, Improve ambulation, Strength and gait training - Occupational Therapy Order: Evaluate and treat, Improve ADL, Gross motor coordination, Fine motor coordination - Case Management Consult No - Certification I have seen patient Francine Berumen on 09/05/18. My clinical findings support the need for the requested home health care services because: Limited mobility due to disease progression, High risk of falls I certify that my clinical findings support that this patient is homebound because: Unsteady gait/balance
--- NOTE | 2018-09-05 18:30 | P.PNNEU ---
Subjective Subjective Comments: vertigo improved with meclizine Active Medications: Active Medications Acetaminophen (Tylenol) 650 mg PO Q4H PRN PRN Reason: Temp > 100.4; pain 1-2 Alprazolam (Xanax) 0.25 mg PO BID PRN PRN Reason: Anxiety Last Admin: 09/04/18 00:09 Dose: 0.25 mg Aspirin (Aspirin Chew) 81 mg PO DAILY [facility] Last Admin: 09/05/18 09:15 Dose: 81 mg Dextrose (D50w Vial) 50 ml IV.PUSH UNSCH PRN PRN Reason: PER HYPOGLYCEMIA PROTOCOL Glucagon (Glucagon Inj) 1 mg OTHER PRN PRN PRN Reason: for Hypoglycemia Protocol Heparin Sodium (Porcine) (Heparin Inj) 5,000 units SQ Q8H [facility] Last Admin: 09/05/18 14:07 Dose: Not Given Sodium Chloride (Ns Inj) 500 mls @ 0 mls/hr IV.SIG BOLUS [facility] Sodium Chloride (Ns Inj) 1,000 mls @ 100 mls/hr IV.CONT .Q10H [facility] Last Admin: 09/05/18 18:21 Dose: Not Given Insulin Aspart (Novolog Insulin Correctional Sugar Inj) 0 unit SQ Q6HR [facility]; Protocol Last Admin: 09/05/18 18:20 Dose: 5 unit Insulin Aspart (Novolog Inj) 3 units SQ TIDAC [facility] Last Admin: 09/05/18 18:21 Dose: 3 units Insulin Detemir (Levemir Inj) 15 unit SQ HS [facility] Levothyroxine Sodium (Synthroid) 50 mcg PO DAILY@0600 [facility] Last Admin: 09/05/18 06:19 Dose: 50 mcg Meclizine HCl (Antivert) 25 mg PO Q8HR [facility] Last Admin: 09/05/18 14:47 Dose: 25 mg Senna/Docusate Sodium (Key-Colace) 1 tab PO BID [facility] Last Admin: 09/05/18 09:15 Dose: 1 tab Sodium Chloride (Ns Flush) 2 ml IV.FLUSH PRN PRN PRN Reason: FLUSH AFTER USING IV ACCESS Last Admin: 09/03/18 17:27 Dose: 2 ml Allergies/Adverse Reactions: Allergies Allergy/AdvReac Type Severity Reaction Status Date / Time Penicillins Allergy Mild Hives Verified 09/03/18 16:26 Physical Exam Vital signs: Vital Signs 09/04/18 20:00 10/16/18 00:00 09/05/18 04:00 Temperature 98.2 F 97.6 F 98.1 F Pulse Rate 75 93 H 85 Respiratory Rate 18 18 18 Blood Pressure 126/77 136/72 119/75 Pulse Oximetry 95 98 95 09/05/18 08:00 09/05/18 12:00 09/05/18 16:00 Temperature 98.1 F 98 F 98.1 F Pulse Rate 90 86 79 Respiratory Rate 20 20 20 Blood Pressure 166/91 H 135/89 149/91 H Pulse Oximetry 96 97 97 Intake & Output 09/04/18 09/05/18 09/05/18 18:59 06:59 18:59 Intake Total 2220 / 2220 848 / 848 1000 / 1000 Output Total 600 / 600 1000 / 1000 Balance 1620 / 1620 -152 / -152 1000 / 1000 Intake: IV 1000 / 1000 848 / 848 1000 / 1000 NS Inj 1,000 ML @ 100 mls/hr IV 1000 / 1000 848 / 848 1000 / 1000 .CONT .Q10H ANN Rx#:[id number] Oral 500 / 500 Other 720 / 720 Output: Urine 600 / 600 1000 / 1000 Other: Other Intake Source Saline Solution # Voids 2 Date of Last Bowel Movement 09/03/18 09/03/18 09/03/18 - Routine Neurological Exam alert, speech normal CN 2-12 normal MOTOR 5/5/ BUE and BLE Objective Laboratory Results - last 24 hr 09/04/18 09/05/18 09/05/18 07:42 00:20 05:45 POC Glucose 260 H 390 H Vitamin B12 463 09/05/18 09/05/18 13:30 17:00 POC Glucose 343 H 299 H Vitamin B12 Review/Management - Diagnosis (1) Dizziness Code(s): R42 - Dizziness and giddiness Status: Acute Current Visit: Yes - Review/Management Plan: vertigo--probable vestibular. Continue meclizine cervical spondylosis. No sign of myelopathy at this time Ok to dc from neurologic standpoint and follow up with me in 2 weeks
[2018-09-05] MEDS ORDERED: Insulin Detemir Inj 1,000 UNIT/10 ML Vial SQ SCH (21:00)
== END 2018-09-05 18:43 | disposition home health service (06) ==
LOC: NEPC 16:18 → NEDA 19:05 → N05 20:27
PROVIDERS: ADMIT Hospitalist; ATTEND Hospitalist